=== PATIENT | female | born 1980 | race Caucasian/White ===

== ENCOUNTER 2016-10-16 16:54 | Emergency (ER) | payer SELFPAY ==
[~2016-10-16] VITALS: Ht 157.5 cm; Wt 106.6 kg
[2016-10-16] MEDS ORDERED: LIDOCAINE 1% INJ 20 ML (XYLOCAINE) VIAL INJ ONE (17:30)
[2016-10-16] MEDS ORDERED: SERT100T PO (17:30)
[2016-10-16] MEDS ORDERED: ZOLP10TA PO (17:31)
[2016-10-16] MEDS ORDERED: LIDOCAINE/EPI 1%-1:100,000 (XYLOCAINE) 20ML INJ ONE (17:45)
[2016-10-16] MEDS ORDERED: PRD20T PO (17:54)
[2016-10-16] MEDS ORDERED: SULF1TAB35 PO (17:54)
[2016-10-16] MEDS ORDERED: HYDR-3812 PO (17:54)
--- NOTE | 2016-10-16 17:56 | ED General ---
General Chief Complaint: Skin/Wound Problems Stated Complaint: R ARM NUMBNESS Nursing Triage Note: c/o intermittant right arm tingling/numbess x 1 week. Noticed small "boil" right axilla 3 days ago which has gradually became larger. Nursing Sepsis Screen: No Definite Risk Source of Information: Patient Exam Limitations: No Limitations History of Present Illness Time Seen by Provider: 16:56 Initial Comments This 36-year-old woman presents to the emergency room with 2 complaints. First she has a shooting pain and numbness intermittently down her right upper extremity from the shoulder to the tips of her fingers. This has been present for about one week. Ibuprofen and Tylenol do not seem to improve the pain. Second, she has an apparent abscess in the right axilla 3 days. It is worsening and rather painful. Allergies and Home Medications Allergies Coded Allergies: No Known Drug Allergies (Unverified , 10/16/16) Home Medications Hydrocodone/Acetaminophen 1 Each Tablet, 1 EACH PO Q6H PRN for PAIN, #10 Prescribed by: JOSÉ MIGUEL LANDERS on 10/16/16 1754 Prednisone 20 Mg Tab, 20 MG PO DAILY, #4 Prescribed by: JOSÉ MIGUEL LANDERS on 10/16/16 1754 Sertraline HCl 100 Mg Tablet, 200 MG PO DAILY, (Reported) Sulfamethoxazole/Trimethoprim 1 Each Tablet, 1 EACH PO BID, #20 Prescribed by: JOSÉ MIGUEL LANDERS on 10/16/16 1754 Zolpidem Tartrate 10 Mg Tablet, 10 MG PO bedtime, (Reported) Constitutional: no symptoms reported EENTM: no symptoms reported Respiratory: no symptoms reported Cardiovascular: no symptoms reported Gastrointestinal: no symptoms reported Genitourinary: no symptoms reported : No Musculoskeletal: see HPI Skin: see HPI Psychiatric/Neurological: See HPI Hematologic/Lymphatic: No Symptoms Reported Past Flkkosb-Gcwnur-Fbkews Hx Patient Social History Alcohol Use: Occasionally Uses Recreational Drug Use: No Smoking Status: Never a Smoker Recent Foreign Travel: No Contact w/Someone Who Travel: No Recent Infectious Disease Expo: No Surgeries HX Surgeries: Yes Surgeries: Hysterectomy Respiratory Hx Respiratory Disorders: No Cardiovascular Hx Cardiac Disorders: No Neurological Hx Neurological Disorders: No Reproductive System : No Genitourinary Hx Genitourinary Disorders: No Gastrointestinal Hx Gastrointestinal Disorders: No Musculoskeletal Hx Musculoskeletal Disorders: No Endocrine Hx Endocrine Disorders: Yes (obesity) HEENT HX ENT Disorders: No Cancer Hx Cancer: No Psychosocial Hx Psychiatric Problems: Yes Behavioral Health Disorders: Sleep Difficulties, Anxiety Physical Exam Vital Signs Vital Sign - Last 12Hours 10/16/16 10/16/16 17:00 18:10 Temp 97.8 Pulse 70 Resp 16 B/P (MAP) 141/108 Pulse Ox 95 O2 Delivery Room Air Capillary Refill : Less Than 3 Seconds General Appearance: No Apparent Distress, WD/WN HEENT: PERRL/EOMI, Normal ENT Inspection Neck: Normal Inspection, Non Tender Respiratory: Lungs Clear, Normal Breath Sounds, No Accessory Muscle Use, No Respiratory Distress Cardiovascular: Regular Rate, Rhythm, No Edema, No Murmur, Normal Peripheral Pulses Extremity: Normal Inspection, Non Tender, No Pedal Edema, Other (strength, radial pulses, capillary refill, and sensation all normal in the right upper extremity) Neurologic/Psychiatric: Alert, Oriented x3, No Motor/Sensory Deficits, Normal 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 It is uncertain if the abscess is related to the other right upper extremity symptoms. I suspect she actually has a cervical radiculopathy with concurrent abscess. Patient was instructed to start prednisone in a few days of treatment of the abscess does not resolve her other arm symptoms. See discharge instructions. Departure Impression Impression: Primary Impression: Axillary abscess Additional Impressions: Encounter for recheck of abscess following incision and drainage Paresthesia of right upper extremity Disposition: 01 HOME, SELF-CARE Condition: Improved Departure-Patient Inst. Decision time for Depature: 17:40 Referrals: NO,LOCAL PHYSICIAN (PCP) Primary Care Physician Patient Instructions: Paresthesias (DC), Skin Abscess Add. Discharge Instructions: Complete your antibiotic as prescribed. If paresthesias in the right arm do not improve after a couple days of antibiotics, you may start the prednisone as prescribed. Return to care if symptoms worsen. Warm moist compresses 3 or 4 times daily may encourage the wound to continue draining. Keep wound covered until it quits draining. Avoid shaving in this area until wound is completely healed. Return to care if symptoms worsen, especially if you develop fevers greater than 100. Use ibuprofen up to 800 mg every 8 hours as needed for primary pain management. Add Tylenol or hydrocodone for pain not controlled by ibuprofen. All discharge instructions reviewed with patient and/or family. Voiced understanding. Scripts Hydrocodone/Acetaminophen (Hydrocodon -Acetaminophen 5-325) 1 Each Tablet 1 EACH PO Q6H Y for PAIN, #10 TAB Prov: JOSÉ MIGUEL RALPH MD 10/16/16 Prednisone (Prednisone) 20 Mg Tab 20 MG PO DAILY, #4 TAB Prov: JOSÉ MIGUEL RALPH MD 10/16/16 Sulfamethoxazole/Trimethoprim (Bactrim Ds Tablet) 1 Each Tablet 1 EACH PO BID, #20 TAB Prov: JOSÉ MIGUEL RALPH MD 10/16/16 JOSÉ MIGUEL RALPH MD Oct 16, 2016 17:56
[2016-10-16 18:10] VITALS: BP 152/119
== END 2016-10-16 18:10 | disposition home or self-care (01) ==
LOC: ER 16:57
DX: L02.411 Cutaneous abscess of right axilla (principal); R20.2 Paresthesia of skin
CPT/HCPCS: 87070; 87077; 87186; 87205; 99282

== ENCOUNTER 2022-12-01 17:35 | Emergency (ER) | payer SELFPAY ==
[~2022-12-01] VITALS: Ht 157 cm; Wt 111.0 kg
[~2022-12-01 17:35] MED LIST: ACHD5005 PO; PRD20T PO; SERT100T PO; SULF1TAB38 PO; ZOLP10TA PO
[2022-12-01] MEDS ORDERED: morphine INJ 10 MG/ML 1ML (SYR OR VIAL) IVP STA (18:10)
[2022-12-01] MEDS ORDERED: ONDANSETRON 4 MG/2 ML (SDV) Z0FRAN IVP ONE (18:15)
--- NOTE | 2022-12-01 18:16 | ED General ---
General Chief Complaint: Back Problems Stated Complaint: KIDNEY PAIN Nursing Triage Note: PATIENT C/O LEFT SIDE PAIN. PATIENT STATES IT'S HER LEFT KIDNEY. PER PATIENT IN THE PAST IT HAD TO BE DRAINED DUE TO FLUID ACCUMULATION. PATIENT AMB. TO ROOM 06 WITH MOM AT BEDSIDE. Source of Information: Patient Exam Limitations: No Limitations History of Present Illness Date Seen by Provider: Dec 01, 2022 Time Seen by Provider: 17:50 Initial Comments 42yoF with past medical history of prior cyst on her left kidney years ago that was complicated by septic shock due to the blockage he created, subsequently drained coming in due to left flank pain. She states the pain is similar to the episode when she had the cyst that was infected. This started a couple weeks ago, has been intermittent, constant today, the pain is sharp, little bit better with ibuprofen. She took ibuprofen a couple hours ago, on Tylenol more recently. Denies any fever, dysuria, diarrhea, nausea, vomiting, hematuria, vaginal bleeding, abdominal pain, and has normal appetite. She is otherwise denying any other acute complaints. Allergies and Home Medications Allergies Coded Allergies: No Known Drug Allergies (Unverified , 10/16/16) Patient Home Medication List Home Medication List Reviewed: Yes Hydrocodone Bit/Acetaminophen (Lortab 5 Mg Tablet) 1 Each Tablet, 1 EACH PO Q6H PRN for PAIN Prescribed by: JOSÉ MIGUEL LANDERS on 10/16/161753 Prednisone (Prednisone) 20 Mg Tab, 20 MG PO DAILY Prescribed by: JOSÉ MIGUEL LANDERS on 10/16/161753 Sertraline HCl (Zoloft) 100 Mg Tablet, 200 MG PO DAILY, (Reported) Entered as Reported by: STACI SWEENEY on 10/16/161729 Sulfamethoxazole/Trimethoprim (Bactrim Ds Tablet) 1 Each Tablet, 1 EACH PO BID Prescribed by: JOSÉ MIGUEL LANDERS on 10/16/161753 Zolpidem Tartrate (Ambien) 10 Mg Tablet, 10 MG PO bedtime, (Reported) Entered as Reported by: STACI SWEENEY on 10/16/161730 Review of Systems Review of Systems Constitutional: No fever Respiratory: no symptoms reported Cardiovascular: no symptoms reported Gastrointestinal: no symptoms reported Genitourinary: see HPI Musculoskeletal: no symptoms reported Skin: no symptoms reported Psychiatric/Neurological: No Symptoms Reported Hematologic/Lymphatic: No Symptoms Reported Immunological/Allergic: no symptoms reported All Other Systems Reviewed Negative Unless Noted: Yes Past Knflddx-Syfatk-Ofooir Hx Patient Social History Tobacco Use?: Yes Tobacco type used: Cigarettes Smoking Status: Current Someday Smoker Use of E-Cig and/or Vaping dev: No Substance use?: Yes Substance type: Marijuana Substance frequency: Couple times a week Alcohol Use?: Yes Alcohol type: Hard Liquor Alcohol Frequency: Rarely Pt feels they are or have been: No Immunizations Up To Date Influenza Vaccine Up-to-Date: No; Not Current Past Medical History Surgery/Hospitalization HX: MED. HX- DENIES SURG. HX-HYST., LUMPECTOMY OF LEFT BREAST Hysterectomy Sleep Difficulties, Anxiety Physical Exam Vital Signs Vital Signs - First Documented 12/01/22 17:40 Temp 36.0 Pulse 65 Resp 17 B/P (MAP) 145/121 (129) Pulse Ox 97 O2 Delivery Room Air Capillary Refill : Height, Weight, BMI Height: 5'2.00" Weight: 235lbs. oz. 106.280726oh; 45.00 BMI Method:Stated General Appearance: No Apparent Distress, WD/WN Eyes: Bilateral Eye Normal Inspection HEENT: PERRL/EOMI, Normal ENT Inspection, Pharynx Normal Neck: Full Range of Motion, Normal Inspection, Non Tender, Supple Respiratory: Chest Non Tender, Lungs Clear, Normal Breath Sounds, No Accessory Muscle Use, No Respiratory Distress Cardiovascular: Regular Rate, Rhythm, No Edema, Normal Peripheral Pulses Gastrointestinal: Normal Bowel Sounds, Non Tender, Soft Back: Normal Inspection, CVA Tenderness (L) Extremity: Normal Capillary Refill, Normal Inspection, Normal Range of Motion, Non Tender, No Calf Tenderness, No Pedal Edema Neurologic/Psychiatric: Alert, No Motor/Sensory Deficits, Normal Mood/Affect Skin: Normal Color, Warm/Dry Progress/Results/Core Measures Suspected Sepsis SIRS Temperature: Pulse: 65 Respiratory Rate: 17 Laboratory Tests 12/01/22 18:15: White Blood Count 11.2H Blood Pressure 145 /121 Mean: 129 Laboratory Tests 12/01/22 18:15: Creatinine 0.67, INR Comment 1.0, Platelet Count 214, Total Bilirubin 0.4 Results/Orders Lab Results Laboratory Tests Test 12/01/22 17:50 12/01/22 18:15 Range/Units Urine Color YELLOW Urine Clarity SL CLOUDY Urine pH 6.0 5-9 Urine Specific [place] >=1.030 1.016-1.022 Urine Protein NEGATIVE NEGATIVE Urine Glucose (UA) NEGATIVE NEGATIVE Urine Ketones NEGATIVE NEGATIVE Urine Nitrite NEGATIVE NEGATIVE Urine Bilirubin NEGATIVE NEGATIVE Urine Urobilinogen 0.2 < = 1.0 MG/DL Urine Leukocyte Esterase NEGATIVE NEGATIVE Urine RBC (Auto) NEGATIVE NEGATIVE Urine RBC RARE /HPF Urine WBC RARE /HPF Urine Squamous Epithelial Cells 10-25 H /HPF Urine Crystals PRESENT H /LPF Urine Amorphous Sediment FEW GABRIEL URATES H /LPF Urine Bacteria FEW H /HPF Urine Casts NONE /LPF Urine Mucus MODERATE H /LPF Urine Culture Indicated NO White Blood Count 11.2 H 4.3-11.0 10^3/uL Red Blood Count 4.55 3.80-5.11 10^6/uL Hemoglobin 13.4 11.5-16.0 g/dL Hematocrit 40 35-52 % Mean Corpuscular Volume 88 80-99 fL Mean Corpuscular Hemoglobin 30 25-34 pg Mean Corpuscular Hemoglobin Concent 34 32-36 g/dL Red Cell Distribution Width 13.2 10.0-14.5 % Platelet Count 214 130-400 10^3/uL Mean Platelet Volume 9.7 9.0-12.2 fL Immature Granulocyte % (Auto) 0 % Neutrophils (%) (Auto) 66 42-75 % Lymphocytes (%) (Auto) 29 12-44 % Monocytes (%) (Auto) 4 0-12 % Eosinophils (%) (Auto) 1 0-10 % Basophils (%) (Auto) 0 0-10 % Neutrophils # (Auto) 7.4 1.8-7.8 10^3/uL Lymphocytes # (Auto) 3.2 1.0-4.0 10^3/uL Monocytes # (Auto) 0.4 0.0-1.0 10^3/uL Eosinophils # (Auto) 0.1 0.0-0.3 10^3/uL Basophils # (Auto) 0.1 0.0-0.1 10^3/uL Immature Granulocyte # (Auto) 0.0 0.0-0.1 10^3/uL Prothrombin Time 13.5 12.2-14.7 SEC INR Comment 1.0 0.8-1.4 Activated Partial Thromboplast Time 31 24-35 SEC Sodium Level 140 135-145 MMOL/L Potassium Level 3.8 3.6-5.0 MMOL/L Chloride Level 108 H 98-107 MMOL/L Carbon Dioxide Level 22 21-32 MMOL/L Anion Gap 10 5-14 MMOL/L Blood Urea Nitrogen 14 7-18 MG/DL Creatinine 0.67 0.60-1.30 MG/DL Estimat Glomerular Filtration Rate 112 BUN/Creatinine Ratio 21 Glucose Level 104 70-105 MG/DL Calcium Level 9.8 8.5-10.1 MG/DL Corrected Calcium 9.5 8.5-10.1 MG/DL Magnesium Level 2.1 1.6-2.4 MG/DL Total Bilirubin 0.4 0.1-1.0 MG/DL Aspartate Amino Transf (AST/SGOT) 18 5-34 U/L Alanine Aminotransferase (ALT/SGPT) 21 0-55 U/L Alkaline Phosphatase 85 40-136 U/L Total Protein 7.7 6.4-8.2 GM/DL Albumin 4.4 3.2-4.5 GM/DL Lipase 21 8-78 U/L My Orders Orders - YOSI OCASIO MD Cbc With Automated Diff (12/01/22 18:10) Comprehensive Metabolic Panel (12/01/22 18:10) Lipase (12/01/22 18:10) Magnesium (12/01/22 18:10) Protime With Inr (12/01/22 18:10) Partial Thromboplastin Time (12/01/22 18:10) Ua Culture If Indicated (12/01/22 18:10) Ct Abd/Pelvis Wo(Kidney Stone) (12/01/22 18:10) Morphine Injection (Morphine Injection (12/01/22 18:10) Ondansetron Injection (Zofran Injectio (12/01/22 18:15) Ed Iv/Invasive Line Start (12/01/22 18:10) Medications Given in ED Current Medications Medications Dose Ordered Sig/Moose Route Start Time Stop Time Status Last Admin Dose Admin Ondansetron HCl 4 mg ONCE ONCE IVP 12/01/22 18:15 12/01/22 18:16 DC 12/01/22 18:22 4 MG Vital Signs/I&O 12/01/22 17:40 Temp 36.0 Pulse 65 Resp 17 B/P (MAP) 145/121 (129) Pulse Ox 97 O2 Delivery Room Air Capillary Refill : Blood Pressure Mean: 129 Progress Note : Progress Note Female with above history coming in due to left flank pain. ABCs were intact and vitals are stable on presentation. Patient is well-appearing, afebrile, and overall in no acute distress. Does have some mild tenderness in the left flank with some pain with range of motion which would point to musculoskeletal cause, but pyelonephritis versus ureterolithiasis versus some other kidney obstruction is still on differential. Given age and lack of risk factors, much less likely to be a AAA rupture. An IV was placed and basic labs were obtained and were significant for a mildly elevated white blood cell count, normal hemoglobin, normal creatinine, urinalysis with bacteria but no significant infection. CT abdomen pelvis ordered and negative for acute abnormalities. Specifically, my interpretation I do not see any obvious ureterolithiasis or hydronephrosis. Patient was given morphine and Zofran IV for pain control followed by potential nausea. Patient continues to be well-appearing and given the reassuring work- up, I believe he stable for discharge with outpatient follow-up. She was sent home with strict return precautions Diagnostic Imaging Diagonstic Imaging: CT (abd/pelvis) Comments [facility], [place] NAME: BOBBY BERMAN [facility] REC#: [id number] PT STATUS: REG ER : 1980 PHYSICIAN: YOSI OCASIO MD ADMIT DATE: 12/01/22/ER Draft Date of Exam:12/01/22 CT ABD/PELVIS WO(KIDNEY STONE) PROCEDURE: CT urinary tract, rule out kidney stone. TECHNIQUE: Multiple contiguous axial images were obtained through the abdomen and pelvis without the use of intravenous contrast. Auto Exposure Controls were utilized during the CT exam to meet ALARA standards for radiation dose reduction. INDICATION: Left-sided abdominal pain. No prior studies are available for comparison. The lung bases are clear. The liver and gallbladder are unremarkable. There is no biliary duct dilatation. Pancreas and spleen are unremarkable. No adrenal mass is identified. No renal calculi are identified. No ureteral calculi or evidence of hydronephrosis is detected. Aorta is nonaneurysmal. The small and large bowel loops are normal in caliber. There is no evidence of obstruction. Appendix is unremarkable. Bladder is decompressed. Uterus appears to be surgically absent. No free fluid or fluid collection is identified. No inflammatory changes are seen. IMPRESSION: Essentially unremarkable noncontrast CT of the abdomen and pelvis. No acute features detected. Dictated on workstation # [id number] Dict: 12/01/221844 Trans: 12/01/221848 CV [id number] Interpreted by: MARIO BRIONES MD Electronically signed by: Departure Impression Primary Impression: Flank pain Disposition: HOME, SELF-CARE Condition: Stable Departure-Patient Inst. Decision time for Depature: 19:25 Referrals: NO,LOCAL PHYSICIAN (PCP) Primary Care Physician Patient Instructions: Flank Pain ED Add. Discharge Instructions: Fortunately there is no evidence of any type of mass or infection. Possible this is musculoskeletal and will improve with time. A muscle relaxer as well as an anti-inflammatory pain medicine will be sent to your pharmacy. Follow-up with your regular doctor if you are not seeing improvement. Scripts Lidocaine (Lidocaine 5% Patch) 5 % Adh..patch 1 EACH TP Q12H PRN for Neuropathic pain MDD 2 for 14 Days, #28 PATCH 2 patches max for 12 hours, then 12 hours patch-free period. Prov: YOSI OCASIO MD 12/01/22 Cyclobenzaprine HCl (Cyclobenzaprine HCl) 10 Mg Tablet 10 MG PO Q8H PRN for SPASMS for 5 Days, #15 TAB 0 Refills Prov: YOSI OCASIO MD 12/01/22 Ibuprofen (Ibuprofen) 600 Mg Tablet 600 MG PO Q6H PRN for PAIN-MILD for 7 Days, #28 TAB Prov: YOSI OCASIO MD 12/01/22 Work/School Note: Work Release Form Date Seen in the Emergency Department: Dec 01, 2022 Return to Work: Dec 02, 2022 Restrictions: No Restrictions YOSI OCASIO MD Dec 01, 2022 18:16
[2022-12-01 18:21] LABS: BILIRUBIN,URINE NEGATIVE (NEGATIVE); CLARITY,URINE SL CLOUDY; COLOR,URINE YELLOW; GLUCOSE, URINE (UA) NEGATIVE (NEGATIVE); KETONES,URINE NEGATIVE (NEGATIVE); LEUKOCYTE ESTERASE ,URINE NEGATIVE (NEGATIVE); NITRITE,URINE NEGATIVE (NEGATIVE); PROTEIN,URINE NEGATIVE (NEGATIVE)
[2022-12-01 18:30] LABS: BASOPHILS # (AUTO) 0.1 10^3/uL (0.0-0.1); BASOPHILS % (AUTO) 0 % (0-10); EOSINOPHILS # (AUTO) 0.1 10^3/uL (0.0-0.3); EOSINOPHILS % (AUTO) 1 % (0-10); HEMATOCRIT 40 % (35-52); HEMOGLOBIN 13.4 g/dL (11.5-16.0); LYMPHOCYTES # (AUTO) 3.2 10^3/uL (1.0-4.0); LYMPHOCYTES % (AUTO) 29 % (12-44); MEAN CORPUSCULAR HEMOGLOBIN 30 pg (25-34); MEAN CORPUSCULAR HGB CONC 34 g/dL (32-36); MEAN CORPUSCULAR VOLUME 88 fL (80-99); MEAN PLATELET VOLUME 9.7 fL (9.0-12.2); MONOCYTES # (AUTO) 0.4 10^3/uL (0.0-1.0); MONOCYTES % (AUTO) 4 % (0-12); NEUTROPHILS # (AUTO) 7.4 10^3/uL (1.8-7.8); NEUTROPHILS % (AUTO) 66 % (42-75); PLATELET COUNT 214 10^3/uL (130-400); WHITE BLOOD COUNT 11.2 10^3/uL (4.3-11.0)
[2022-12-01 18:40] LABS: ALBUMIN 4.4 GM/DL (3.2-4.5)
[2022-12-01 18:41] LABS: POTASSIUM 3.8 MMOL/L (3.6-5.0)
[2022-12-01 18:42] LABS: CALCIUM 9.8 MG/DL (8.5-10.1)
[2022-12-01 18:43] LABS: TOTAL PROTEIN 7.7 GM/DL (6.4-8.2)
[2022-12-01 18:45] LABS: BILIRUBIN,TOTAL 0.4 MG/DL (0.1-1.0)
[2022-12-01 18:47] LABS: CREATININE SERUM 0.67 MG/DL (0.60-1.30)
--- NOTE | 2022-12-01 18:49 | Diagnostic Imaging Report ---
PROCEDURE: CT urinary tract, rule out kidney stone. TECHNIQUE: Multiple contiguous axial images were obtained through the abdomen and pelvis without the use of intravenous contrast. Auto Exposure Controls were utilized during the CT exam to meet ALARA standards for radiation dose reduction. INDICATION: Left-sided abdominal pain. No prior studies are available for comparison. The lung bases are clear. The liver and gallbladder are unremarkable. There is no biliary duct dilatation. Pancreas and spleen are unremarkable. No adrenal mass is identified. No renal calculi are identified. No ureteral calculi or evidence of hydronephrosis is detected. Aorta is nonaneurysmal. The small and large bowel loops are normal in caliber. There is no evidence of obstruction. Appendix is unremarkable. Bladder is decompressed. Uterus appears to be surgically absent. No free fluid or fluid collection is identified. No inflammatory changes are seen. IMPRESSION: Essentially unremarkable noncontrast CT of the abdomen and pelvis. No acute features detected. Dictated by: Dictated on workstation # [id number]
[2022-12-01 18:50] LABS: MAGNESIUM 2.1 MG/DL (1.6-2.4)
[2022-12-01 18:56] LABS: AMORPHOUS SEDIMENT,UR FEW AMOR URATES /LPF; BACTERIA,URINE FEW /HPF; RBC,URINE RARE /HPF; WBC,URINE RARE /HPF
[2022-12-01 18:58] LABS: PROTHROMBIN TIME PATIENT 13.5 SEC (12.2-14.7)
[2022-12-01] MEDS ORDERED: IBUP-1773 PO (19:16)
[2022-12-01] MEDS ORDERED: LIDO700A45 TP (19:16)
[2022-12-01] MEDS ORDERED: CYCL10TA25 PO (19:16)
[2022-12-01 19:42] VITALS: BP 157/102
== END 2022-12-01 19:42 | disposition home or self-care (01) ==
LOC: EDUNIT# 17:35 → ER 17:38
DX: R10.9 Unspecified abdominal pain (principal); R11.0 Nausea; F17.210 Nicotine dependence, cigarettes, uncomplicated
CPT/HCPCS: 36415; 74176; 80053; 81000; 83690; 83735; 85025; 85610; 85730